=== PATIENT | female | born 2000 | race Caucasian/White ===

== ENCOUNTER → 2018-01-24 | Outpatient (CLI) | payer OTHER ==
[~2018-01-24] MED LIST: IBUP-1050 PO
[2018-01-24 12:30] LABS: HEMATOCRIT 43.8 % (37-47); HEMOGLOBIN 14.7 g/dL (12.0-16.0); MEAN CELL VOLUME 86.9 fL (80-100); MEAN CORPUSCULAR HEMOGLOBIN 29.2 pg (25-34); MEAN CORPUSCULAR HGB CONC 33.6 g/dl (32-36); MEAN PLATELET VOLUME 9.6 fL (7.4-10.4); PLATELET COUNT 184 K/uL (130-400); RED CELL DISTRIBUTION WIDTH SD 44.4 fL (36.4-46.3); WHITE BLOOD COUNT 4.12 K/uL (4.8-10.8)
[2018-01-24 12:47] LABS: ALBUMIN 3.9 gm/dl (3.4-5.0); ALKALINE PHOSPHATASE 49 U/L (45-117); ALT/SGPT 23 U/L (12-78); AST/SGOT 20 U/L (15-37); BLOOD UREA NITROGEN 13 mg/dl (7-18); CALCIUM 10.3 mg/dl (8.5-10.1); CARBON DIOXIDE 29 mmol/L (21-32); CREATININE 0.93 mg/dl (0.60-1.20); GLUCOSE 87 mg/dl (70-99); PHOSPHORUS 2.8 mg/dl (2.5-4.9); POTASSIUM 3.5 mmol/L (3.5-5.1); SODIUM 136 mmol/L (136-145)
[2018-01-24 12:54] LABS: TRANSFERRIN 370 mg/dl (200-360)
[2018-01-24 13:36] LABS: EOS % 1.9 %; EOS ABS # 0.08 K/uL (0-0.5); LYMPH ABS # 2.06 K/uL (1.2-3.4); MONO % 8.7 %; MONO ABS # 0.36 K/uL (0.11-0.59); NEUT % 39.4 %; NEUT ABS # 1.62 K/uL (1.4-6.5)
== END | disposition home or self-care (01) ==
LOC: C.LAB1850 11:00
PROVIDERS: ATTEND Pediatrics
DX: F50.02 Anorexia nervosa, binge eating/purging type (principal)